=== PATIENT | female | born 1995 | race Caucasian/White ===

== ENCOUNTER 2017-01-02 20:44 | Emergency (ER) | payer OTHER ==
[2017-01-02 20:52] VITALS: BP 151/76; PULSE 72; RESP 16; TEMP 96.8; O2SAT 98
--- NOTE | 2017-01-02 21:07 | EDPHY ---
H & P Time Seen by Provider: 01/02/17 20:53 HPI/ROS: CHIEF COMPLAINT: " I think I have a hernia" HISTORY OF PRESENT ILLNESS: 21-year-old female, body [place], noticed an umbilical mass, tenderness after body building. No fever no chills. No nausea or vomiting. Bowel movements normal. Passing gas is normal. PHYSICAL EXAM (Prior to examination, patient consented to physical exam, hands were washed and my usual and customary physical exam procedures followed) 1) GENERAL: Well-developed, well-nourished, alert and oriented. Appears to be in no acute distress. 2) HEAD: Normocephalic 3) HEENT: sclera anicteric 4) LUNGS: Breathing comfortably. [5) abdomen: Umbilical hernia measuring approximately 2 cm palpated. I am able to reduce this area. There is no evidence of gangrene or cellulitis. The remainder of the abdomen is nontender no guarding no McBurney's point pain. Smoking Status: Never smoked Constitutional: Initial Vital Signs Temperature (C) 36.0 C 01/02/17 20:48 Heart Rate 72 01/02/17 20:48 Respiratory Rate 16 01/02/17 20:48 Blood Pressure 151/76 H 01/02/17 20:48 O2 Sat (%) 98 01/02/17 20:48 O2 Delivery Mode Room Air Allergies/Adverse Reactions: No Known Allergies Allergy (Unverified 01/02/17 20:47) Home Medications: Medication Instructions Recorded Estrogens, Conjugated 01/02/17 Prozac 10 MG (*) 01/02/17 MDM/Departure - MDM Procedures: Procedure: Hernia reduction Indications: Umbilical hernia Using gentle, constant pressure I was able to easily reduce this patient's hernia. She felt immediate relief. ED Course/Re-evaluation: This patient has a reducible umbilical hernia. I have instructed her on how to reduce this should it recur. I have recommend she follow up with surgery and have provided this referral information. Recommend she decrease the amount of weight she body builds, recommend she decrease intra-abdominal pressure is body building. - Depart Disposition: Home, Routine, Self-Care Clinical Impression: Umbilical hernia Qualifiers: Obstruction and gangrene presence: without obstruction or gangrene Qualified Code(s): K42.9 - Umbilical hernia without obstruction or gangrene Condition: Good Instructions: Umbilical Hernia (ED) Additional Instructions: If the hernia popped out again placed gentle pressure. If you cannot push it back in you need to come back to the ER immediately. Referrals: Paul Meeks MD [Medical Doctor] - 1-2 days without fail (Dr. Paul Meeks is a surgeon)
== END 2017-01-02 21:15 | disposition home or self-care (01) ==
DX: K42.9 Umbilical hernia without obstruction or gangrene (principal)